=== PATIENT | male | born 1995 | race Caucasian/White ===

== ENCOUNTER 2017-07-10 11:00 | Emergency (ER) | payer SELFPAY ==
[~2017-07-10] VITALS: Ht 195.6 cm; Wt 74.8 kg
[2017-07-10 11:06] VITALS: BP 129/76
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
--- NOTE | 2017-07-10 11:33 | NUR ---
XRAY AT BS
[2017-07-10] MEDS ORDERED: HYDROCODONE/APAP 5/325MG 1 EACH TABLET PO ONE (12:00)
[2017-07-10] MEDS ORDERED: HYDROCODONE/APAP 5/325MG 1 EACH TABLET ONE (12:06)
== END 2017-07-10 12:19 | disposition home or self-care (01) ==
LOC: ER 11:06
DX: S20.212A Contusion of left front wall of thorax, initial encounter (principal); F17.200 Nicotine dependence, unspecified, uncomplicated; V00.121A Fall from non-in-line roller-skates, initial encounter; Y93.51 Activity, roller skating (inline) and skateboarding; Y92.331 Roller skating rink as the place of occurrence of the external cause; Y99.8 Other external cause status
CPT/HCPCS: 71100; 99284; A4606; J7040; Z7610